=== PATIENT | female | born 1955 | race American Indian/Alaskan Native ===

== ENCOUNTER 2021-03-02 10:18 | Day surgery (SDC) | payer MEDICARE ==
[~2021-03-02 10:18] MED LIST: IOHEXOL 300 MG/ML 50ML IV ONE; LACTATED RINGERS 1,000 ML IV SCH; MIDAZOLAM 2 MG/2 ML INJ IV NR; WATER FOR IRRIG STERILE 2000 ML IR ONE
--- NOTE | 2021-03-02 11:43 | Anesthesia Consultation ---
Anesthesia Consult and Med Hx Date of service: 03/02/21 - Airway Anesthetic Teeth Evaluation: Dentures ROM Head & Neck: Adequate Mental/Hyoid Distance: Adequate Mallampati Class: Class III Intubation Access Assessment: Possibly Difficult - Pre-Operative Health Status ASA Pre-Surgery Classification: ASA2 Proposed Anesthetic Plan: General - Pulmonary Hx Smoking: Yes (1/2 PPD) Hx Respiratory Symptoms: No - Cardiovascular System Hx Hypertension: Yes Hx Heart Attack/AMI: No Hx Percutaneous Transluminal Coronary Angioplasty (PTCA): No Hx Cardia Arrhythmia: No - Central Nervous System CVA: No - Endocrine Hx Renal Disease: No Hx Liver Disease: No Hx Insulin Dependent Diabetes: No Hx Thyroid Disease: No - Additional Comments Anesthesia Medical History Comments: No hx anesthetic complications.
[2021-03-02] MEDS ORDERED: HYDROcodone/ACETAMINOPHEN 5-325 MG TAB PO PRN (11:44)
[2021-03-02] MEDS ORDERED: ONDANSETRON 4 MG/2 ML INJ IV PRN (11:44)
[2021-03-02] MEDS ORDERED: HYDROmorphone 1 MG/1 ML INJ IV PRN (11:44)
--- NOTE | 2021-03-02 11:44 | Anesthesia Day of Surgery ---
Anesthesia Day of Surgery - Day of Surgery Patient Examined: Yes Patient H&P Reviewed: Yes Patient is NPO: Yes
[2021-03-02] MEDS ORDERED: propofoL 200 MG/20 ML VIAL IV ONE (11:58)
[2021-03-02] MEDS ORDERED: HYDROmorphone 1 MG/1 ML INJ ONE (11:58)
[2021-03-02] MEDS ORDERED: LIDOCAINE MPF (2%) 20 MG/1 ML VIAL 5 ML ONE (12:00)
[2021-03-02] MEDS ORDERED: ceFAZolin/Water 2 GM/20 ML 2 GM/20 ML SYRINGE IV ONE (12:30)
[2021-03-02] MEDS ORDERED: ceFAZolin/Water 2 GM/20 ML 2 GM/20 ML SYRINGE IV NR (12:33)
--- NOTE | 2021-03-02 12:46 | Post Operative Note ---
Date of procedure: 03/02/21 Pre-op diagnosis: bladder lesion Post-op diagnosis: same Findings: cysto excison Procedure: cysto excison Anesthesia: GETA Surgeon: BLU CANELA Estimated blood loss: none Pathology: list (bladder) Specimen disposition: to lab Condition: stable
--- NOTE | 2021-03-02 12:47 | Discharge Summary ---
Short Stay Discharge Plan Activity: other (no straining ) Weight Bearing Status: Full Weight Bearing Diet: low fat, low cholesterol, low salt Special Instructions: other (inc fluids ) Follow up with: MARCE MENON MD [Primary Care Provider] - 7 Days BLU CANELA MD [Staff Physician] - 48 Hours
[2021-03-02] MEDS ORDERED: WATER FOR IRRIG STERILE 2000 ML IR ONE (12:53)
[2021-03-02] MEDS ORDERED: IOHEXOL 300 MG/ML 50ML IV ONE (12:55)
[2021-03-02] MEDS ORDERED: ONDANSETRON 4 MG/2 ML INJ ONE (13:03)
--- NOTE | 2021-03-02 13:47 | Fluoroscopy Report ---
FLUOROSCOPY RETROGRADE UROGRAPHY HISTORY: Hematuria FINDINGS: Fluoroscopy was provided by radiology during retrograde urography by the urologist. There i s normal filling of both renal collecting systems. No filling defect or abnormal dilatation is identi fied. IMPRESSION: Unremarkable bilateral retrograde pyelograms Fluoroscopy time: 0.2 minutes Fluoroscopic images: 4 Signer Name: Sid Addison Jr, MD Signed: 03/02/2021 1:42 PM Workstation Name: [id number]
[2021-03-02] MEDS ORDERED: IBUPROFEN 800 MG TAB PO ONE (14:00)
[2021-03-02 14:29] VITALS: BP 143/69
--- NOTE | 2021-03-02 14:50 | Post Anesthesia Evaluation ---
- Post Anesthesia Evaluation Patient Participated: Yes Airway Patent: Yes Stable Respiratory Function: Yes Nausea/Vomiting: No Temp > 96.8F: Yes Pain Manageable: Yes Adequeate Hydration: Yes Anesthesia Complications: No
--- NOTE | 2021-03-02 15:36 | Operative Report ---
DATE OF SURGERY: 03/02/2021 PREOPERATIVE DIAGNOSIS: Bladder lesion. POSTOPERATIVE DIAGNOSIS: Bladder lesion. PROCEDURES: Cystoscopy, excision of lesion. SURGEON: Nabil Iniguez MD. ANESTHESIA: General. FINDINGS: This is a woman with history of bladder cancer, who had microscopic hematuria. She has a lesion right medial to the left orifice. She now presents for excision. DESCRIPTION OF PROCEDURE: The patient was brought to the operating room and placed on the operating table. Following induction of anesthesia, placed in the lithotomy position, prepped and draped in usual sterile fashion. Cystourethroscopy showed a very superficial lesion. It was slightly papillary and it was excised. We did not want to damage the orifice. Retrograde showed good filling, good drainage. The area was cauterized just away from the orifice. The patient tolerated the procedure well. No Sousa was left. Brought to recovery in stable condition. TID: [id number] RECEIPT: [id number] CECE/LILIYA
== END 2021-03-02 14:48 | disposition home or self-care (01) ==
LOC: OR 10:18
PROVIDERS: ATTEND Urology
DX: N32.9 Bladder disorder, unspecified (principal); I10 Essential (primary) hypertension; E78.00 Pure hypercholesterolemia, unspecified; F17.210 Nicotine dependence, cigarettes, uncomplicated; Z90.710 Acquired absence of both cervix and uterus; Z98.890 Other specified postprocedural states; Z79.899 Other long term (current) drug therapy
CPT/HCPCS: 52204; 74420; 88305; A4217; C1758; J0690; J1170; J2250; J2405; J2704; J7120; Q9967